=== PATIENT | male | born 1955 | race Caucasian/White ===

== ENCOUNTER 2019-07-07 03:11 | Emergency (ER) | payer OTHER ==
--- NOTE | 2019-07-07 03:37 | EDM.PDOC ---
ED HPI GENERAL MEDICAL PROBLEM - General Chief Complaint: Chest Pain Stated Complaint: [facility] Time Seen by Provider: 07/07/19 03:16 Source of Information: Reports: Patient History Limitations: Reports: No Limitations - History of Present Illness INITIAL COMMENTS - FREE TEXT/NARRATIVE: Mr. Lopez is a very pleasant 63-year-old man with a past medical history significant for diabetes, occasionally-treated GERD, and coronary artery disease , status post an PA in September 2017, with 3 coronary stents, who is now brought to the ED by EMS after waking up with heartburn and dyspnea around 01:30. 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 He states that the sensation in his chest is felt behind his upper sternum, pressure-like in character, and a discomfort, not a pain. No associated nausea , diaphoresis, or sense of impending doom. He states that he had minor similar symptoms this past weekend. The patient states that his current symptoms are not the same as when he had an PA in 2018. He states that his last cardiac stress test was in December 2017, and while it "was not perfect", it was not bad enough to prompt a repeat coronary angiogram. The patient states that he usually checks his blood glucose twice a day, with a typical range being between 8 and 12 mmol/L (144 to 216 mg/dL). Here in the ED, the patient's initial BP is found to be elevated at 179/90, with a tachycardia of 110 bpm. He is afebrile, saturating 91% on room air. The patient denies recent fever, chills, sore throat, ear pain, nasal or sinus congestion, cough, dyspnea, palpitations, nausea, vomiting, constipation, diarrhea, abdominal pain, urinary symptoms, recent weight gain or weight loss, recent bloody bowel movements or black bowel movements, recent joint aches, headaches, or rashes. The patient does not have a PCP. Treatments SOFTWARE DEPLOYMENT ENGINEER: Reports: EKG, Oxygen Middle Chest Pain Score (Numeric/FACES): 0 - Related Data Allergies Allergy/AdvReac Type Severity Reaction Status Date / Time erythromycin base Allergy Severe Hives Verified 07/07/19 03:19 Home Meds: Home Meds Aspirin 81 mg PO DAILY 07/07/19 [History] Candesartan Cilexetil 16 mg PO BID 07/07/19 [History] Clopidogrel Bisulfate [Plavix] 75 mg PO DAILY 07/07/19 [History] Furosemide [Lasix] 20 mg PO DAILY 07/07/19 [History] Glucosam/Chondr/Collagn/Hyalur [Glucosamine & Chondroitin Cap] 1 each PO BID [History] Metoprolol Tartrate 12.5 mg PO BID 07/07/19 [History] amLODIPine Besylate [Amlodipine Besylate] 10 mg PO DAILY 07/07/19 [History] atorvaSTATin Calcium [Atorvastatin Calcium] 80 mg PO DAILY 07/07/19 [History] glyBURIDE [Glyburide] 10 mg PO BID 07/07/19 [History] metFORMIN [Glucophage] 500 mg PO BIDMEALS 07/07/19 [History] Past Medical History Cardiovascular History: Reports: CAD, High Cholesterol, Hypertension, PA (x 1, Sep 2017) Gastrointestinal History: Reports: GERD Genitourinary History: Reports: BPH (untreated), Chronic Renal Insuffiency Musculoskeletal History: Reports: Osteoarthritis Neurological History: Reports: Neuropathy, Diabetic Psychiatric History: Reports: Depression (resolved) Endocrine/Metabolic History: Reports: Diabetes, Type II, Obesity/BMI 30+ - Past Surgical History HEENT Surgical History: Reports: Tonsillectomy Cardiovascular Surgical History: Reports: Coronary Artery Stent (x 3, Sep 2017) GI Surgical History: Reports: Colonoscopy (x 1) Social & Family History - Tobacco Use Smoking Status *Q: Never Smoker Years of Tobacco use: 10 Packs/Tins Daily: 2.5 Month/Year Tobacco Last Used: Quit around 1979 - Alcohol Use Alcohol Use History: Yes Alcohol Use Frequency: Socially - Recreational Drug Use Recreational Drug Use: Yes Drug Use in Last 12 Months: No Recreational Drug Type: Reports: Marijuana/Hashish (last smoked years ago) - Living Situation & Occupation Living situation: Reports: , with Significant Other Occupation: Employed (corporate driver) ED ROS GENERAL - Review of Systems Review Of Systems: Comprehensive ROS is negative, except as noted in HPI. ED EXAM, GENERAL - Physical Exam Exam: See Below Exam Limited By: No Limitations General Appearance: Alert, WD/WN, No Apparent Distress Eye Exam: Bilateral Eye: EOMI, Normal Inspection Ears: Normal External Exam, Hearing Grossly Normal Nose: Normal Inspection Throat/Mouth: Normal Inspection, Normal Lips, Normal Voice, No Airway Compromise Head: Atraumatic, Normocephalic Neck: Normal Inspection, Full Range of Motion Respiratory/Chest: No Respiratory Distress, Lungs Clear, Normal Breath Sounds, No Accessory Muscle Use, Chest Non-Tender Cardiovascular: Normal Peripheral Pulses, No Gallop, No JVD, No Murmur, No Rub, Tachycardia (regular) Peripheral Pulses: 3+: Radial (L), Radial (R) GI/Abdominal: Normal Bowel Sounds, Soft, Non-Tender, No Organomegaly, No Distention, No Abnormal Bruit, No Mass (Male) Exam: Deferred Rectal (Males) Exam: Deferred Back Exam: Normal Inspection, Full Range of Motion, NT Extremities: Normal Range of Motion, Normal Capillary Refill, Other ( Approximately 2+ tibial pitting edema bilaterally, with hyperpigmentation consistent with chronic venous stasis changes) Neurological: Alert, Oriented, Normal Cognition, No Motor/Sensory Deficits Psychiatric: Normal Affect Skin Exam: Warm, Dry, Intact, Normal Color, No Rash EKG INTERPRETATION EKG Date: 07/07/19 Time: 03:11 Rhythm: Other (Sinus tachycardia) Rate (Beats/Min): 111 [place]: Normal P-Wave: Present QRS: Other (Late transition) ST-T: Normal QT: Prolonged (QTc 488 ms) Comparison: NA - No Prior EKG Course - Vital Signs Last Recorded V/S: Last Vital Signs Temp 36.6 C 07/07/19 05:19 Pulse 97 07/07/19 05:46 Resp 16 07/07/19 05:19 BP 166/93 H 07/07/19 05:46 Pulse Ox 91 L 07/07/19 05:19 - Orders/Labs/Meds Orders: Active Orders 24 hr Category Date Time Status EKG Documentation Completion [RC] ASDIRECTED Care 07/07/19 03:15 Active EKG 12 Lead [EK] Stat Ther 07/07/19 03:15 Ordered Labs: Laboratory Tests 07/07/19 07/07/19 07/07/19 Range/Units 03:25 03:25 03:25 WBC 12.16 H (4.23-9.07) K/mm3 RBC 3.51 L (4.63-6.08) M/mm3 Hgb 10.8 L (13.7-17.5) gm/dl Hct 33.7 L (40.1-51.0) % MCV 96.0 H (79.0-92.2) fl MCH 30.8 (25.7-32.2) pg MCHC 32.0 L (32.2-35.5) g/dl RDW Std Deviation 46.5 H (35.1-43.9) fL Plt Count 389 H (163-337) K/mm3 MPV 9.0 L (9.4-12.3) fl Neutrophils % (Manual) 71 H (40-60) % Band Neutrophils % 3 (0-10) % Lymphocytes % (Manual) 16 L (20-40) % Atypical Lymphs % 0 % Monocytes % (Manual) 8 (2-10) % Eosinophils % (Manual) 2 (0.8-7.0) % Basophils % (Manual) 0 L (0.2-1.2) Platelet Estimate Adequate RBC Morph Comment Normal PT 9.5 L (9.7-12.0) SECONDS INR 0.93 APTT 27 (22-31) SECONDS D-Dimer, Quantitative 0.84 H (0.19-0.50) mg/L Sodium 136 (136-145) mEq/L Potassium 4.8 (3.5-5.1) mEq/L Chloride 102 (98-107) mEq/L Carbon Dioxide 23 (21-32) mEq/L Anion Gap 15.8 H (5-15) BUN 33 H (7-18) mg/dL Creatinine 2.0 H (0.7-1.3) mg/dL Est Cr Clr Drug Dosing 36.58 mL/min Estimated GFR (MDRD) 34 (>60) mL/min BUN/Creatinine Ratio 16.5 (14-18) Glucose 323 H (80-115) mg/dL POC Glucose (80-115) mg/dL Calcium 8.9 (8.5-10.1) mg/dL Magnesium (1.8-2.4) mg/dl Ferritin (26-388) ng/ml Total Bilirubin 0.3 (0.2-1.0) mg/dL AST 20 (15-37) U/L ALT 22 (16-63) U/L Alkaline Phosphatase 56 (46-116) U/L Lactate Dehydrogenase (85-227) U/L Creatine Kinase (39-308) U/L Troponin I 0.188 H* (0.00-0.056) ng/mL C-Reactive Protein (<1.0) mg/dL NT-Pro-B Natriuret Pep (0-125) pg/mL Total Protein 6.9 (6.4-8.2) g/dl Albumin 3.1 L (3.4-5.0) g/dl Globulin 3.8 gm/dL Albumin/Globulin Ratio 0.8 L (1-2) 07/07/19 07/07/19 07/07/19 Range/Units 03:25 03:25 03:25 WBC (4.23-9.07) K/mm3 RBC (4.63-6.08) M/mm3 Hgb (13.7-17.5) gm/dl Hct (40.1-51.0) % MCV (79.0-92.2) fl MCH (25.7-32.2) pg MCHC (32.2-35.5) g/dl RDW Std Deviation (35.1-43.9) fL Plt Count (163-337) K/mm3 MPV (9.4-12.3) fl Neutrophils % (Manual) (40-60) % Band Neutrophils % (0-10) % Lymphocytes % (Manual) (20-40) % Atypical Lymphs % % Monocytes % (Manual) (2-10) % Eosinophils % (Manual) (0.8-7.0) % Basophils % (Manual) (0.2-1.2) Platelet Estimate RBC Morph Comment PT (9.7-12.0) SECONDS INR APTT (22-31) SECONDS D-Dimer, Quantitative (0.19-0.50) mg/L Sodium (136-145) mEq/L Potassium (3.5-5.1) mEq/L Chloride (98-107) mEq/L Carbon Dioxide (21-32) mEq/L Anion Gap (5-15) BUN (7-18) mg/dL Creatinine (0.7-1.3) mg/dL Est Cr Clr Drug Dosing mL/min Estimated GFR (MDRD) (>60) mL/min BUN/Creatinine Ratio (14-18) Glucose (80-115) mg/dL POC Glucose (80-115) mg/dL Calcium (8.5-10.1) mg/dL Magnesium 1.8 (1.8-2.4) mg/dl Ferritin (26-388) ng/ml Total Bilirubin (0.2-1.0) mg/dL AST (15-37) U/L ALT (16-63) U/L Alkaline Phosphatase (46-116) U/L Lactate Dehydrogenase 249 H (85-227) U/L Creatine Kinase 208 (39-308) U/L Troponin I (0.00-0.056) ng/mL C-Reactive Protein 0.3 (<1.0) mg/dL NT-Pro-B Natriuret Pep 3310 H (0-125) pg/mL Total Protein (6.4-8.2) g/dl Albumin (3.4-5.0) g/dl Globulin gm/dL Albumin/Globulin Ratio (1-2) 07/07/19 07/07/19 07/07/19 Range/Units 03:25 04:20 05:15 WBC (4.23-9.07) K/mm3 RBC (4.63-6.08) M/mm3 Hgb (13.7-17.5) gm/dl Hct (40.1-51.0) % MCV (79.0-92.2) fl MCH (25.7-32.2) pg MCHC (32.2-35.5) g/dl RDW Std Deviation (35.1-43.9) fL Plt Count (163-337) K/mm3 MPV (9.4-12.3) fl Neutrophils % (Manual) (40-60) % Band Neutrophils % (0-10) % Lymphocytes % (Manual) (20-40) % Atypical Lymphs % % Monocytes % (Manual) (2-10) % Eosinophils % (Manual) (0.8-7.0) % Basophils % (Manual) (0.2-1.2) Platelet Estimate RBC Morph Comment PT (9.7-12.0) SECONDS INR APTT (22-31) SECONDS D-Dimer, Quantitative (0.19-0.50) mg/L Sodium (136-145) mEq/L Potassium (3.5-5.1) mEq/L Chloride (98-107) mEq/L Carbon Dioxide (21-32) mEq/L Anion Gap (5-15) BUN (7-18) mg/dL Creatinine (0.7-1.3) mg/dL Est Cr Clr Drug Dosing mL/min Estimated GFR (MDRD) (>60) mL/min BUN/Creatinine Ratio (14-18) Glucose (80-115) mg/dL POC Glucose 279 H (80-115) mg/dL Calcium (8.5-10.1) mg/dL Magnesium (1.8-2.4) mg/dl Ferritin 53 (26-388) ng/ml Total Bilirubin (0.2-1.0) mg/dL AST (15-37) U/L ALT (16-63) U/L Alkaline Phosphatase (46-116) U/L Lactate Dehydrogenase (85-227) U/L Creatine Kinase (39-308) U/L Troponin I 0.278 H* (0.00-0.056) ng/mL C-Reactive Protein (<1.0) mg/dL NT-Pro-B Natriuret Pep (0-125) pg/mL Total Protein (6.4-8.2) g/dl Albumin (3.4-5.0) g/dl Globulin gm/dL Albumin/Globulin Ratio (1-2) Meds: Medications Discontinued Medications Generic Name Dose Route Start Last Admin Trade Name Freq PRN Reason Stop Dose Admin Aspirin 162 mg 07/07/19 04:12 07/07/19 04:21 Aspirin PO 07/07/19 04:13 162 mg ONETIME STA Administration Heparin Sodium (Porcine) 4,000 units 07/07/19 05:29 07/07/19 05:38 Heparin Sodium IVPUSH 07/07/19 05:30 4,000 units .BOLUS STA Administration Heparin Sodium/Dextrose 25,000 units in 500 mls @ 20 mls/hr 07/07/19 05:30 05:39 Heparin 25,000 Units In D5w 500 Ml IV 1,000 units/hr TITRATE KAMALJIT 20 mls/hr Administration Protocol 1,000 UNITS/HR Insulin Human Regular 7 unit 07/07/19 04:11 07/07/19 04:20 Humulin R SUBCUT 07/07/19 04:12 7 unit ONETIME STA Administration Metoprolol Tartrate 5 mg 07/07/19 04:12 07/07/19 04:20 Lopressor IVPUSH 07/07/19 04:13 5 mg ONETIME ONE Administration Metoprolol Tartrate 5 mg 07/07/19 05:38 07/07/19 05:46 Lopressor IVPUSH 07/07/19 05:39 5 mg ONETIME ONE Administration - Re-Assessments/Exams Free Text/Narrative Re-Assessment/Exam: 07/07/19 03:34 As above, the patient woke with upper chest discomfort and dyspnea. His ECG at triage does not show any ischemic changes, and he states that his current symptoms are not the same as when he had an PA in September 2017. I have ordered a work-up that includes blood work and a chest x-ray. 07/07/19 03:51 Portable chest radiograph reviewed. The cardiac silhouette is within normal limits. There is mild to moderate pulmonary vascular congestion. No pleural effusions seen on this AP view. No focal infiltrate. No pneumothorax. Formal read per the Radiologist pending. While the patient's chest radiograph findings are most likely due to CHF, there is also the possibility that it could represent COVID-19, therefore I have added an LDH, ferritin, CRP, and CPK. 07/07/19 04:08 The patient's CBC is remarkable for a WBC count elevated at 12.16, but with only 3% bandemia. His H/H is mildly depressed at 10.8/33.7, with platelets elevated at 389,000. The remainder of his CBC is unremarkable. His CMP is remarkable for a BUN/Cr elevated at 33/2.0, with a blood glucose elevated at 323. The remainder of his CMP is unremarkable. His magnesium level is elevated at 1.8. His troponin is elevated at 0.188. His BNP is elevated at 3310. His D-dimer is mildly elevated at 0.84. His coags are unremarkable. Based on the above, I cannot determine if the patient's elevated troponin is due to his renal dysfunction, as his D-dimer and BNP may be, versus a new cardiac injury. I will repeat a troponin now, since it has been about an hour since it was originally drawn, to see if it is trending upward. In the meantime , the patient will be given 7 units of subcutaneous insulin, 2 baby aspirin ( since he took 2 before calling EMS) and 5 mg of IV Lopressor. 07/07/19 05:31 The patient's repeat troponin has returned elevated at 0.278. His LDH is mildly elevated at 249. His ferritin is within normal limits at 53. His CRP is slightly elevated at 0.3. His CPK is within normal limits at 208. Based on the above, it appears that the patient is suffering from a non-STEMI. I have ordered a heparin bolus of 4000 units, to be followed by a drip of 1000 units/h. He will need to be transferred to [place]. 07/07/19 05:35 Test results discussed with the patient. He does not have a preference of [facility] versus [facility]. 07/07/19 05:47 Case discussed with Holli at [facility] at 05:36. Case then discussed with Dr. Trejo, Hospitalist at [facility], at 05:45. He accepted the patient for direct admission to their PCU. The patient will be transported by ground ambulance. 07/07/19 05:58 I have pushed the portable chest x-ray images to [facility]. Departure - Departure Time of Disposition: 05:49 Disposition: DC/Tfer to Acute Hospital 02 Reason for Transfer *Q: Primary PCI Indicated Condition: Good Clinical Impression: Prolonged Q-T interval on ECG, Non-STEMI (non-ST elevated myocardial infarction ), Hyperglycemia due to type 2 diabetes mellitus, Chronic renal insufficiency Referrals: PCP,Not In Area [Primary Care Provider] - Forms: ED Department Discharge Sepsis Event Note - Evaluation Sepsis Screening Result: No Definite Risk - Focused Exam Vital Signs: Vital Signs Temp Pulse Pulse Resp BP BP Pulse Ox 07/07/19 05:46 97 166/93 H 07/07/19 05:19 36.6 C 92 16 169/73 H 91 L 07/07/19 04:20 102 H 161/83 H 07/07/19 03:15 36.4 C 110 H 16 179/90 H 91 L Date Exam was Performed: 07/07/19 Time Exam was Performed: 06:40 - My Orders Last 24 Hours: My Active Orders 07/07/19 03:15 EKG Documentation Completion [RC] ASDIRECTED EKG 12 Lead [EK] Stat - Assessment/Plan Last 24 Hours: My Active Orders 07/07/19 03:15 EKG Documentation Completion [RC] ASDIRECTED EKG 12 Lead [EK] Stat
[2019-07-07] MEDS ORDERED: Insulin Regular, Human 100 Units/ML 3 ML Vial SUBCUT STA (04:11)
[2019-07-07] MEDS ORDERED: Metoprolol Tartrate 5 MG/5 ML SDV IVPUSH ONE ×2 (04:12→05:38)
[2019-07-07] MEDS ORDERED: Aspirin 81 MG Tab.Chew PO STA (04:12)
[2019-07-07] MEDS ORDERED: Heparin Sodium 5,000 Units/ML Vial IVPUSH STA (05:29)
[2019-07-07] MEDS ORDERED: Heparin Sodium/D5W 25,000 UNITS/500 ML BAG IV SCH (05:30)
--- NOTE | 2019-07-07 06:31 | CR ---
Chest: Frontal view of the chest was obtained. Comparison: No prior chest imaging is available. Heart size and mediastinum are normal. Lungs are clear with no acute parenchymal change. Endplate spurring is noted within the spine. Impression: 1. Nothing acute is seen on frontal chest x-ray. Diagnostic code #2 This report was dictated in MDT
== END 2019-07-07 06:38 ==
LOC: JD.ED 03:11
DX: I21.4 Non-ST elevation (NSTEMI) myocardial infarction (principal); E11.65 Type 2 diabetes mellitus with hyperglycemia; R94.31 Abnormal electrocardiogram [ECG] [EKG]; I12.9 Hypertensive chronic kidney disease with stage 1 through stage 4 chronic kidney disease, or unspecified chronic kidney disease; N18.9 Chronic kidney disease, unspecified; E11.22 Type 2 diabetes mellitus with diabetic chronic kidney disease; I25.10 Atherosclerotic heart disease of native coronary artery without angina pectoris; E78.00 Pure hypercholesterolemia, unspecified; M19.90 Unspecified osteoarthritis, unspecified site; E11.40 Type 2 diabetes mellitus with diabetic neuropathy, unspecified; E66.9 Obesity, unspecified; Z68.38 Body mass index [BMI] 38.0-38.9, adult; Z79.02 Long term (current) use of antithrombotics/antiplatelets; Z79.82 Long term (current) use of aspirin; Z79.84 Long term (current) use of oral hypoglycemic drugs
CPT/HCPCS: 36415; 71045; 80053; 82550; 82728; 82962; 83615; 83735; 83880; 84484; 85007; 85027; 85379; 85610; 85730; 86140; 93005; 96365; 96375; 96376; 99285; A9270; J1644; J1815; J3490